=== PATIENT | male | born 1955 | race Caucasian/White ===

== ENCOUNTER 2021-06-11 08:36 | Outpatient (CLI) | payer MEDICARE, OTHER | END 2021-06-11 23:59 | disposition home or self-care (01) | LOC: CFH 08:36 | PROVIDERS: ATTEND Internal Medicine | DX: Z12.2 Encounter for screening for malignant neoplasm of respiratory organs (principal); J84.10 Pulmonary fibrosis, unspecified; I25.10 Atherosclerotic heart disease of native coronary artery without angina pectoris; R91.1 Solitary pulmonary nodule; Z87.891 Personal history of nicotine dependence | CPT/HCPCS: 71271; 76706 ==

== ENCOUNTER 2021-07-23 10:00 | Outpatient (CLI) | payer MEDICARE | END 2021-07-23 12:00 | disposition home or self-care (01) | LOC: PETCFH 10:00 | PROVIDERS: ATTEND Internal Medicine | DX: I25.10 Atherosclerotic heart disease of native coronary artery without angina pectoris (principal); R91.1 Solitary pulmonary nodule | CPT/HCPCS: 78815; A9552 ==